=== PATIENT | male | born 1945 | race Caucasian/White ===

== ENCOUNTER 2017-01-18 05:52 | Inpatient (IN) ==
[2017-01-15 10:52] LABS: Basophils % 0.4 % (0.0-0.8); Eosinophils % 0.4 % (0.00-10.9); Hematocrit 42.4 VOL% (42.0-52.0); Hemoglobin 14.7 GM/DL (14.0-18.0); Immature Granulocytes % 0.3 %; Immature Granulocytes Absolute 0.02 #; Lymphocytes # 2.2 10*3/uL (1.4-4.0); Mean Corpuscular HGB Conc 34.7 GM/DL (32-36); Mean Corpuscular Hemoglobin 34 PG (27-34); Mean Corpuscular Volume 96.8 FL (87-102); Mean Platelet Volume 10.4 FL (9.6-12.0); Monocytes # 0.8 10*3/uL (0.11-0.8); Monocytes % 11.1 % (1.7-12.7); Neutrophils # 4.4 10*3/uL (1.4-7.4); Neutrophils % 58.8 % (38.7-73.9); Platelet Count 181 T/CUMM (130-400); Red Blood Count 4.38 MC/CUMM (3.8-5.5); Red Cell Distribution Width 12.8 % (9.3-17.3); White Blood Count 7.4 T/CUMM (4-12)
[2017-01-15 11:29] LABS: Albumin 3.7 G/DL (3.4-5.0); Bilirubin,Total 0.4 MG/DL (0.2-1.0); Calcium 9.3 MG/DL (8.5-10.1); Osmolality,Calculated 277.3 MOS/KG (273-304); Potassium 4.7 MMOL/L (3.5-5.1); Total Protein 7.3 G/DL (6.4-8.3)
--- NOTE | 2017-01-15 12:12 | XRay Report ---
XR chest 2V Indication: Preop evaluation Comparison: None Technique: Frontal and lateral views of the chest. Findings: Heart size appears within normal limits. Chronic change of the lungs without focal consolidation, pleural effusion, or pneumothorax. Visualized osseous and surrounding soft tissue structures demonstrate no acute abnormality. Electronic device noted projecting over the right upper lung with electrodes extending into the right neck base and superior to image. Electronic device projecting over the left upper lung with electrodes extending of the left neck base and superior to image. Right humeral anchor noted. IMPRESSION: No acute cardiopulmonary process demonstrated. PROCEDURE INTERPRETED AT [facility] DEPARTMENT OF RADIOLOGY Final Report Signed by: Dr Erick Hinton
[2017-01-18] MEDS ORDERED: METOCLOPRAMIDE 10 MG TABLET PO SCH (06:00)
[2017-01-18] MEDS ORDERED: FAMOTIDINE 20 MG TABLET PO ONE (06:00)
[2017-01-18] MEDS ORDERED: LORazepam 1 MG TABLET PO ONE (06:00)
[2017-01-18] MEDS ORDERED: ALVIMOPAN 12 MG CAPSULE PO ONE (06:00)
[2017-01-18] MEDS ORDERED: cefOXitin 1,000 MG in SODIUM CHLORIDE 0.9% 100 ML IV ONE (06:00)
[2017-01-18] MEDS ORDERED: SODIUM CHLORIDE 0.9% 100 ML IV ONE (06:06)
[2017-01-18] MEDS ORDERED: FAMOTIDINE 20 MG TABLET ONE (06:06)
[2017-01-18] MEDS ORDERED: ALVIMOPAN 12 MG CAPSULE ONE (06:07)
[2017-01-18] MEDS ORDERED: LORazepam 1 MG TABLET ONE (06:07)
[2017-01-18] MEDS ORDERED: METOCLOPRAMIDE 10 MG TABLET ONE (06:19)
[2017-01-18] MEDS ORDERED: METOCLOPRAMIDE 10 MG/2 ML VIAL IV STA (06:38)
--- NOTE | 2017-01-18 06:50 | EKG Report ---
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
--- NOTE | 2017-01-18 06:55 | History and Physical Update ---
History and Physical Update - History and Physical H&P was reviewed, the patient examined and there: are no changes in the patients condition since last H&P was completed. (discussed with cardiology. EF 50% and neg stress test. Should be OK for surgery. Discussed with Dr Mcleod)
[2017-01-18] MEDS: LACTATED RINGERS 1,000 ML IV SCH (06:57)
[2017-01-18] MEDS ORDERED: GLYCOPYRROLATE 0.4 MG/2 ML VIAL ONE (07:05)
[2017-01-18] MEDS ORDERED: ROCURONIUM 100 MG/10 ML VIAL IV ONE (07:05)
[2017-01-18] MEDS ORDERED: PHENYLEPHRINE 1 MG/10 ML SYRINGE IV ONE (07:05)
[2017-01-18] MEDS ORDERED: HYDROCORTISONE 100 MG VIAL ONE (07:05)
[2017-01-18] MEDS ORDERED: PROPOFOL 200 MG/20 ML VIAL IV ONE (07:05)
[2017-01-18] MEDS ORDERED: ONDANSETRON 4 MG/2 ML VIAL ONE ×2 (07:05→10:53)
[2017-01-18] MEDS ORDERED: LIDOCAINE 1% 5 ML VIAL ONE (07:05)
[2017-01-18] MEDS ORDERED: BUPIVACAINE MPF 0.25% /EPI 30 ML VIAL ONE (07:15)
[2017-01-18 10:31] LABS: Apearance,Urine CLOUDY (Clear); Bacteria,Urine Occasional /HPF (Few); Bilirubin,Urine Negative (Negative); Blood, Urine Negative (Negative); Glucose,Urine (UA) Negative (Negative); Ketones,Urine Negative (Negative); Mucus,Urine Many /LPF (Occasional); Nitrite,Urine Negative (Negative); Protein,Urine 100 MG/DL; RBC,Urine 2 /HPF (0-4); Urine Color Amber (Yellow); Urine Specific Gravity 1.025 (1.001-1.035); Urine Urobilinogen < 2.0 EU/DL (0.2-1.0); WBC,Urine 4 /HPF (0-6)
--- NOTE | 2017-01-18 10:33 | Operative Note ---
Date of procedure: 01/18/17 Pre-op diagnosis: Chronic recurrent sigmoid diverticulitis Post-op diagnosis: same Procedure: Robotic sigmoid colectomy with stapled EEA anastomosis 2. Complete mobilization of splenic flexure Findings and technique: After informed consent was obtained patient was brought the operating room placed in supine position. After successful induction of general anesthesia the patient's abdomen and perineum were prepped and draped in usual sterile fashion with the patient in a modified lithotomy position. The patient was placed in Trendelenburg position and the abdomen accessed through a right paramedian port site with a 8 mm incision and an open technique used to enter the peritoneal cavity under direct vision. Camera was inserted with a pneumoperitoneum established. Additional ports were placed in the right lower quadrant and right upper quadrant and the robot then docked. Dissection was carried first laterally after I inspected the abdomen and no other pathology was noted. There was scarring between the left pelvic and left lateral sidewall between chronically diseased colon and the peritoneum. This was all dissected free with a robot in the left ureter and gonadal vessels were identified along with the left iliac artery. dissection was carried down into the pelvis and down to the peritoneal reflection which was incised mobilizing the distal rectosigmoid and dissection then carried along the left gutter at the peritoneal reflection up to the splenic flexure. The splenic flexure was completely mobilized. Following this dissection was done medially and the mesenteric vessels are elevated up and a window created behind the colonic mesentery and the right and left ureter once again identified prior to dividing the colon distally at the rectosigmoid with a stapling device robotically. Once the colon was mobilized the right lower quadrant incision was enlarged a bit in the colon brought out through this and some of the mesentery roshan between clamps and ties in about 30 cm of sigmoid colon resected to normal- appearing descending colon. The pinpoint camera was then used with ICG injected and this showed the point of demarcation of the vascular supply to the colon and this was use as a point of transection with a pursestring device. The EEA anvil was inserted at this point and the bowel returned back into the abdominal cavity. Frozen section on the resected sigmoid colon returned benign. Following this a transanal anastomosis was performed with an EEA stapling device with the anvil passed through the staple line of the transected rectal stump and this was done under absolutely no tension.: An EEA anvil laid down into the pelvis with no tension and the anastomosis performed with no tension. This was then leak tested under water and no bubbling was noted from the staple line with air insufflated transanally. This was then coated with Tisseel and no bleeding noted in the colon laid in good position and all of the operative field was completely hemostatic. The gas was evacuated from the abdomen after a 10 mm JEANETTE drain was placed in the pelvis and brought out through 1 of the right-sided port sites. The fascial defect had been closed at the time that we put the colon and EEA anvil back in the abdomen this fascial defect was actually through his old paramedian scar and the fascia was closed along with the muscle with running 0 PDS suture. The skin incisions were closed with skin clips. He appeared to tolerate the procedure well and he did receive perioperative IV antibiotics. Anesthesia: GETA, local Surgeon / Physician: Renaldo Rahman III. Product Safety Coordinator: Marlon Dawkins Estimated blood loss: other (75 mL) Specimens: other (Sigmoid colon) Condition: stable Disposition: PACU Results - Labs CBC & BMP: 01/15/17 10:46 01/15/17 10:46 Discharge Plan - Discharge Medications No Action Fenofibrate [Tricor] 145 mg PO DAILY Atorvastatin [Lipitor] 80 mg PO DAILY Trazodone HCl 300 mg PO BEDTIME Donepezil [Aricept] 10 mg PO DAILY Multivitamin [One Daily Multivitamin] 1 tablet PO DAILY Tizanidine HCl 4 mg PO QID Lisinopril 20 mg PO DAILY Omeprazole 20 mg PO DAILY Acetamin/Codeine 300-30 Tab [Tylenol/Codeine #3] 1 tablet PO QID Tamsulosin [Flomax] 0.4 mg PO DAILY Vortioxetine Hydrobromide [Brintellix] 1 tablet PO DAILY Carvedilol 6.25 mg PO BID - Follow Up or Referral - Forms/Instructions
[2017-01-18] MEDS ORDERED: hydrALAZINE 20 MG/1 ML VIAL ONE (10:42)
[2017-01-18] MEDS ORDERED: hydrALAZINE 20 MG/1 ML VIAL IV ONE (10:46)
[2017-01-18] MEDS ORDERED: ALBUMIN 5% 12.5 GM/250 ML VIAL IV ONE (10:48)
[2017-01-18] MEDS ORDERED: DESFLURANE 1 UNIT/15 MINUTE INH ONE (10:48)
[2017-01-18] MEDS ORDERED: ePHEDrine 50 MG/ML AMP ONE (10:49)
[2017-01-18] MEDS ORDERED: LACTATED RINGERS 1,000 ML IV ONE (10:49)
[2017-01-18] MEDS ORDERED: ACETAMINOPHEN 1,000 MG/100 ML VIAL IV ONE (10:49)
[2017-01-18] MEDS ORDERED: SUFentanil 50 MCG/ML AMP ONE (10:49)
[2017-01-18] MEDS ORDERED: HYDROmorphone 2 MG/1 ML VIAL ONE (10:53)
[2017-01-18] MEDS: HYDROmorphone 2 MG/1 ML VIAL IV PRN ×6 (10:55→20:31)
[2017-01-18] MEDS ORDERED: ONDANSETRON 4 MG/2 ML VIAL IV PRN (10:57)
[2017-01-18 12:47] LABS: Hematocrit 42.8 VOL% (42.0-52.0); Hemoglobin 14.8 GM/DL (14.0-18.0)
--- NOTE | 2017-01-18 12:59 | Operative Note ---
Date of procedure: 01/18/17 Pre-op diagnosis: sigmoid diverticulitis Post-op diagnosis: same Procedure: This is a animal care assistant note for the robotic assisted laparoscopic splenic flexure mobilization and sigmoid colectomy performed by Dr. Rahman. I was the bedside hospital nursing assistant for the robotic portion of the procedure and also assisted with the anal portion of the EEA stapled anastomosis. There was sigmoid diverticular disease present in a resection was performed back to healthy bowel both proximally and distally was free of diverticulum. A splenic flexure mobilization was performed robotically. The left ureter and right ureter were both seen and preserved. There was no tension on the anastomosis which was performed with an EEA 28 mm stapler. The air leak test was negative. The pinpoint perfusion device was used to visualize good perfusion at the proximal resection site of the colon. For full details of the procedure please see Dr. Rahman note. Surgeon / Physician: Renaldo Rahman III. Dry Chain Operator: Marlon Dawkins Estimated blood loss: minimal Results - Labs CBC & BMP: 01/18/17 12:39 01/15/17 10:46 Discharge Plan - Discharge Medications No Action Fenofibrate [Tricor] 145 mg PO DAILY Atorvastatin [Lipitor] 80 mg PO DAILY Trazodone HCl 300 mg PO BEDTIME Donepezil [Aricept] 10 mg PO DAILY Multivitamin [One Daily Multivitamin] 1 tablet PO DAILY Tizanidine HCl 4 mg PO QID Lisinopril 20 mg PO DAILY Omeprazole 20 mg PO DAILY Acetamin/Codeine 300-30 Tab [Tylenol/Codeine #3] 1 tablet PO QID Tamsulosin [Flomax] 0.4 mg PO DAILY Vortioxetine Hydrobromide [Brintellix] 1 tablet PO DAILY Carvedilol 6.25 mg PO BID - Follow Up or Referral - Forms/Instructions
[2017-01-18] MEDS: DEXTROSE 5% LACTATED RINGERS 1,000 ML IV SCH ×2 (13:37→20:35)
[2017-01-18] MEDS: tiZANidine 4 MG TABLET PO SCH ×3 (14:05→20:31)
--- NOTE | 2017-01-18 15:49 | Cardiology Consult Note ---
Tanner Priest Vanessa, RN, am scribing for, and in the presence of, Salomon Finley MD 15:49. Assessment and Plan - Time spent with patient Time spent with patient: Greater than 30 minutes (Due to assessment, planning, documentation, medication review) (1) Status post colectomy Status: Acute Assessment and plan: Status post uneventful sigmoid colectomy earlier this morning. He appears to be doing well at this time, and we will follow with you perioperatively and check twelve-lead EKG in the morning. Current Visit: Yes (2) Hypertension Status: Chronic Current Visit: Yes (3) Dyslipidemia Status: Chronic Assessment and plan: Statin has been continued postoperatively. Current Visit: Yes (4) History of coronary artery disease Status: Chronic Assessment and plan: Appears to be stable at this time. He has undergone cardiac catheterization in the remote past which was performed at [facility] by a Dr. Finley, and patient reported that he was told he had a blockage "way down at the end of the vessel as" but this does not require percutaneous coronary intervention or surgical intervention. Current Visit: Yes (5) GERD (gastroesophageal reflux disease) Status: Chronic Assessment and plan: Continue PPI. Current Visit: Yes (6) Diverticulitis Status: Chronic Assessment and plan: This has been an ongoing issue for several years now, and most recent has caused abdominal pain and weight loss. Current Visit: Yes History of Present Illness - Data of Consult Patient: known to practice within the last 3 years Consult date: 01/18/17 Requesting Physician: Renaldo Rahman III. 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 GARSIA PCP: DR. BAIN CARDIOLOGY CONSULT NOTE: PERIOPERATIVE MANAGEMENT, STATUS POST ELECTIVE COLECTOMY Mr. Russ is a 71 year old white male with risk factors significant for: Hypertension, dyslipidemia, known CAD, family history of CAD, and former smoker. 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 Ndiaye. He had previously been experiencing some nausea, vomiting, and diaphoresis. A 30 day event monitor revealed only normal sinus rhythm with PACs. It is also noted he has previous reported that he experiences dizziness of his blood pressure is "too high or too low". Average BP 160s/90s. He has not had any recent chest pain or shortness of breath. He was recently referred to Dr. Lacey JOSE per Dr. Ndiaye for surgical evaluation diverticulitis. He has had abdominal pain and weight loss moderate to severe. He was scheduled for elective colectomy, and underwent robotic sigmoid colectomy this morning per Dr. Dr. Lacey JOSE and Dr. Dawkins. Cardiology is asked to see for perioperative management. Most recent echocardiogram in August 2016 with normal LV size, borderline normal systolic function, ejection fraction 50%, grade 1 diastolic dysfunction, mild MR and TR with PA pressure 42 mmHg. Myocardial perfusion test August also showing small fixed perfusion abnormality of moderate size in the apical segment and inferior region with diaphragmatic attenuation suspected. Mr. Russ is sleeping quietly without distress noted this afternoon upon exam. His is present at bedside with him. Patient rouses easily, and he denies any current chest pain or shortness of breath. He is having no nausea or vomiting. He has not been orthopneic or had lower extremity edema. His only complaint is of some mild discomfort at this time at incisional sites right upper and lower quadrant of abdomen. Blood pressure during exam 145/65. Pulse is 80s and regular. Supplemental O2 via NC at 2L with saturations upper 90s. Labs reviewed. H&H stable 14.8/40 2. Electrolytes and renal function are normal. Urinalysis revealed occasional bacteria. CC: Renaldo Rahman III., - Home Medications and Allergies Home Medications: Home Medications Medication Instructions Recorded Confirmed Type Acetamin/Codeine 300-30 Tab 1 tablet PO QID 01/17/17 01/18/17 History [Tylenol/Codeine #3] Atorvastatin [Lipitor] 80 mg PO DAILY 01/17/17 01/18/17 History Donepezil [Aricept] 10 mg PO DAILY 01/17/17 01/18/17 History Fenofibrate [Tricor] 145 mg PO DAILY 01/17/17 01/18/17 History Lisinopril 20 mg PO DAILY 01/17/17 01/18/17 History Multivitamin [One Daily 1 tablet PO DAILY 01/17/17 01/18/17 History Multivitamin] Omeprazole 20 mg PO DAILY 01/17/17 01/18/17 History Tamsulosin [Flomax] 0.4 mg PO DAILY 01/17/17 01/18/17 History Tizanidine HCl 4 mg PO QID 01/17/17 01/18/17 History Trazodone HCl 300 mg PO BEDTIME 01/17/17 01/18/17 History Vortioxetine Hydrobromide 1 tablet PO DAILY 01/17/17 01/18/17 History [Brintellix] Carvedilol 6.25 mg PO BID 01/18/17 01/18/17 History Allergies/Adverse Reactions: Allergies Allergy/AdvReac Type Severity Reaction Status Date / Time morphine Allergy Severe Vomiting Verified 01/17/17 08:51 - Constitutional Constitutional: Present: as per HPI - EENT Eyes: Present: as per HPI Ears: Present: as per HPI Nose, mouth and throat: Present: as per HPI - Cardiovascular Cardiovascular: Present: as per HPI - Respiratory Respiratory: Present: as per HPI - Gastrointestinal Gastrointestinal: Present: as per HPI - Genitourinary Genitourinary: Present: as per HPI - Musculoskeletal Musculoskeletal: Present: as per HPI - Neurological Neurological: Present: as per HPI - Psychiatric Psychiatric: Present: as per HPI - Endocrine Endocrine: Present: as per HPI - Hematologic/Lymphatic Hematologic/Lymphatic: Present: as per HPI Medical,Surgical,& Family Hx - Medical History Cardio: History of: CAD, Hypertension, Cardiovascular Problems No history of: Cardiac Dysrhythmia, Cerebrovascular Disease, DC, Pacemaker, PVD, Valvular Heart Disease Neurology: Comment Only: Seizures (TRMORS) HEENT: History of: Eye Problem (GLASSES), Dental Problems (DENTAL) Endocrine: History of: Dyslipidemia No history of: Diabetes Mellitus (IDDM), Diabetes Mellitus (NIDDM), Thyroid Disorder Respiratory: No history of: Bronchitis, Obstructive Sleep Apnea Renal: No history of: Renal Problems Gastrointestinal: History of: Diverticulitis/ Diverticulosis, GERD No history of: Gastrointestinal Bleed, Ulcerative Colitis Musculoskeletal: History of: Musculoskeletal Problems (OA) - Surgical History Cardiac Surgeries: Sugical HX of: Cardiac Catheterization Patient Denies: Carotid Endarterectomy, Internal Defibrillator Abdominal Surgeries: Surgical HX of: Abdominal Surgery (right sigmoid colectomy) , Colonoscopy, EGD Orthopedic Surgeries: Surgical HX of;: Implanted Devices (brain stimulator), Total Hip Replacement (RIGHT) - Family History Family History: Reports;: Family Cancer (sister), Family Diabetes (mother), Family Heart Disease (MOM), Family Hypertension (mother), Additional Family History (DAD-RUPTURE COLON) - Social History Smoking Status: Never smoker Frequency of Alcohol Use: None Type of Drug Use: None Marital Status: Lives With:: Spouse Functional capacity: independent ambulation Physical Examination Vital Signs Temp Pulse Resp BP Pulse Ox 97.8 F 53 L 20 169/94 97 01/18/17 06:26 01/18/17 06:26 01/18/17 06:26 01/18/17 06:26 01/18/17 06:26 General: Present: No Apparent Distress HEENT: Present: PERRL, Normocephaly, Mucus Membranes Moist Neck: Present: Supple Neck, Midline Trachea, No JVD/HJR, No Masses, No Bruit Cardiac: Present: Reg Rate and Rhythm, No Murmur. Absent: Tachycardia, Bradycardia Lungs: Present: Clear Ascult./Percussion, Oxygen, No Wheeze, Rales, Rhonchi Neuro: Present: Grossly Intact. Absent: Numbness, Resting Tremor, Essential Tremor Abdomen: Present: Soft, Tender (Right upper and lower quadrant and surgical site ), Other (Decreased). Absent: Firm, Distended Skin: Present: Clear, Other (Right upper quadrant and right lower quadrant of ABD with dry and intact dressing to incision 3. JEANETTE drain intact.). Absent: Rash, Suspicious Lesions Musculoskeletal: Present: No Fluid Collection, Normal Range of Motion Extremities: Present: No Clubbing, No Cyanosis, No Edema, Normal Upper Extr. Pulses (2+ bilaterally), Normal Lower Extr. Pulses (2+ bilateral), Capillary Refill (Normal) Result/EKG - Labs CBC & BMP: 01/18/17 12:39 01/15/17 10:46 Lab Results: I have reviewed the past 24 hour labs Labs: Laboratory Results - last 24 hr 01/18/17 01/18/17 10:24 12:39 Hgb 14.8 Hct 42.8 Urine Color Fal[place]i Urine Appearance Cloudy Urine pH 5.0 Ur Specific Wana 1.025 Urine Protein 100 Urine Glucose (UA) Negative Urine Ketones Negative Urine Blood Negative Urine Nitrate Negative Urine Bilirubin Negative Urine Urobilinogen < 2.0 H Urine Leukocytes Trace Urine RBC 2 Urine WBC 4 Urine Bacteria Occasional Urine Mucus Many Ur Culture Indicated? Not indicated - Diagnostic Findings Procedure: Chest x-ray: image reviewed by me, report reviewed by me (01/17/17: Cardiomegaly, stable. No ousmane pulmonary edema.) - EKG EKG results: interpreted by me, no acute changes EKG shows: sinus rhythm Quality Measures - VTE Contraindication to Pharmacological VTE Prophylaxis: High Risk of Bleeding Tushar Priest Wesley, MD, personally performed the services described in this documentation, ascribed by Adri Hart RN in my presence, and it is both accurate and complete .
[2017-01-18 19:23] LABS: Hematocrit 36.7 VOL% (42.0-52.0)
[2017-01-18] MEDS: CARVEDILOL 6.25 MG TABLET PO SCH (20:31)
[2017-01-19] MEDS: HYDROmorphone 2 MG/1 ML VIAL IV PRN ×5 (02:21→20:40)
[2017-01-19 03:24] LABS: Hematocrit 34.8 VOL% (42.0-52.0); Hemoglobin 12.2 GM/DL (14.0-18.0)
[2017-01-19 03:25] LABS: Basophils % 0.1 % (0.0-0.8); Hematocrit 35.4 VOL% (42.0-52.0); Hemoglobin 12.3 GM/DL (14.0-18.0); Immature Granulocytes % 0.3 %; Immature Granulocytes Absolute 0.02 #; Lymphocytes # 1.8 10*3/uL (1.4-4.0); Lymphocytes % 24.3 % (21.2-54.2); Mean Corpuscular HGB Conc 34.7 GM/DL (32-36); Mean Corpuscular Hemoglobin 33 PG (27-34); Mean Corpuscular Volume 95.7 FL (87-102); Monocytes # 1.1 10*3/uL (0.11-0.8); Monocytes % 15.4 % (1.7-12.7); Neutrophils # 4.5 10*3/uL (1.4-7.4); Neutrophils % 59.9 % (38.7-73.9); Platelet Count 156 T/CUMM (130-400); White Blood Count 7.4 T/CUMM (4-12)
[2017-01-19 03:52] LABS: Calcium 8.2 MG/DL (8.5-10.1); Osmolality,Calculated 277.4 MOS/KG (273-304); Potassium 3.3 MMOL/L (3.5-5.1)
[2017-01-19] MEDS: DEXTROSE 5% LACTATED RINGERS 1,000 ML IV SCH ×4 (04:14→13:11)
--- NOTE | 2017-01-19 07:21 | EKG Report ---
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
[2017-01-19] MEDS: LACTATED RINGERS 1,000 ML IV SCH (08:04)
[2017-01-19] MEDS: DONEPEZIL 10 MG TABLET PO SCH (08:33)
[2017-01-19] MEDS: ATORVASTATIN 80 MG TABLET PO SCH (08:33)
[2017-01-19] MEDS: CARVEDILOL 6.25 MG TABLET PO SCH ×2 (08:33→20:40)
[2017-01-19] MEDS: LISINOPRIL 20 MG TABLET PO SCH (08:33)
[2017-01-19] MEDS: TAMSULOSIN 0.4 MG CAPSULE PO SCH (08:33)
--- NOTE | 2017-01-19 08:33 | Event Note ---
He feels well and has expected abdominal soreness. This is controlled with pain medication. He has stable vital signs and good urine output. He has a moderate amount of JEANETTE drainage which is not unexpected because of intra- abdominal irrigation. This is decreasing. His hematocrit has drifted downward and this is probably related both to some surgical blood loss and hemodilution. We will continue to watch this. I do not see a need for transfusion. We will get him up out of bed and get his Nino catheter out today.
[2017-01-19] MEDS: PANTOPRAZOLE 40 MG TABLET PO SCH (08:34)
[2017-01-19] MEDS: FENOFIBRATE 145 MG TABLET PO SCH (08:34)
[2017-01-19] MEDS: tiZANidine 4 MG TABLET PO SCH ×4 (08:34→20:40)
[2017-01-19] MEDS ORDERED: BRINTELLIX PO SCH (09:00)
[2017-01-19] MEDS: POTASSIUM CHLORIDE 20 MEQ TABLET PO PRN ×2 (09:20→13:20)
--- NOTE | 2017-01-19 11:18 | Pathology Report from [facility] ---
[facility] ACCESSION # : [id number] PATIENT NAME : Rohit Russ ORDERING DR : CASSIE GUILLORY III, MD CLINICAL HX: Diverticulitis POST-OP DX: Same SPECIMEN INFO: #1 Sigmoid colon #2 Nodule on sigmoid colon #3 Donuts GROSS DESCRIPTION: #1 Received fresh labeled ROHIT RUSS consists of a segment of colon measuring 22.0 x 2.5 cm. Opening the specimen reveals a thickened bowel wall with an area of constriction noted centrally. Scattered non-bleeding diverticula are present with no mucosal lesions or perforations seen. Sections submitted 1A&1B-Surgical margins, 1C-Diverticula.#2 Received in formalin labeled ROHIT RUSS & #2 is a 1.5 x 1.2 cm thompson nodule filled with soft yellow brown material, sectioned and submitted in cassette #2.#3 Received in formalin labeled ROHIT RUSS & #3 are two ring shaped fragments of thompson mucosal tissue 3.8 x 1.5 cm collectively. Field Sales Consultant sections are submitted in cassette #3. DIAGNOSIS FOR ROHIT RUSS: #1 SIGMOID COLECTOMY: Diverticulosis/ diverticulitis, serosal fibrous adhesions and acute hemorrhage. Viable tissue is proximal and distal specimen margins.#2 NODULE ON SIGMOID COLON: Infarcted fatty tissue with dystrophic calcification.#3 DONUTS: Unremarkable colonic tissue. COLLECTED DATE: 01/18/2017 [facility] REPORT DATE: 01/19/2017 ELECTRONICALLY SIGNED BY: Pepito Ortiz M.D. 01/19/2017 - 10:39:31 [facility]
[2017-01-19] MEDS ORDERED: MAGNESIUM SULF RIDER 4 GM in PREMIX 1 EACH IV PRN (11:29)
[2017-01-19] MEDS ORDERED: MAGNESIUM SULF RIDER 2 GM in PREMIX 1 EACH IV PRN (11:29)
--- NOTE | 2017-01-19 11:32 | Cardiology Progress Note ---
Tanner Priest Vanessa, RN, am scribing for, and in the presence of, Salomon Finley MD 11:32. Assessment and Plan - Time spent with patient Time spent with patient: Greater than 30 minutes (1) Status post colectomy Status: Acute Assessment and plan: POD #1 status post uneventful sigmoid colectomy. From a cardiac standpoint, he appears to be doing well. Current Visit: Yes (2) Hypertension Status: Chronic Assessment and plan: Blood pressure overall well controlled. Antihypertensives have been resumed postoperatively. Current Visit: Yes (3) Dyslipidemia Status: Chronic Assessment and plan: Statin has been continued postoperatively. Current Visit: Yes (4) History of coronary artery disease Status: Chronic Assessment and plan: Appears to be stable at this time. He has undergone cardiac catheterization in the remote past which was performed at [facility] by a Dr. Finley, and patient reported that he was told he had a blockage "way down at the end of the vessel as" but this does not require percutaneous coronary intervention or surgical intervention. Current Visit: Yes (5) GERD (gastroesophageal reflux disease) Status: Chronic Assessment and plan: Continue PPI. Current Visit: Yes (6) Diverticulitis Status: Chronic Assessment and plan: This has been an ongoing issue for several years now, and most recently has caused abdominal pain and weight loss. Current Visit: Yes Cardiology - PN: Subj Interval history: PRIMARY DIRECTOR OF PSYCHIATRY: DR. GARSIA PCP: DR. DIANE SUMMARY: Mr. Russ is a 71 year old white male with risk factors significant for: Hypertension, dyslipidemia, known CAD, family history of CAD, and former smoker. 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 Ndiaye. He had previously been experiencing some nausea, vomiting, and diaphoresis. A 30 day event monitor revealed only normal sinus rhythm with PACs. It is also noted he has previous reported that he experiences dizziness of his blood pressure is "too high or too low". Average BP 160s/90s. He has not had any recent chest pain or shortness of breath. He was recently referred to Dr. Rahman III per Dr. Ndiaye for surgical evaluation diverticulitis. He has had abdominal pain and weight loss moderate to severe. He was scheduled for elective colectomy, and underwent robotic sigmoid colectomy this morning per Dr. Dr. Lacey JOSE and Dr. Dawkins. Cardiology is asked to see for perioperative management. Most recent echocardiogram in August 2016 with normal LV size, borderline normal systolic function, ejection fraction 50%, grade 1 diastolic dysfunction, mild MR and TR with PA pressure 42 mmHg. Myocardial perfusion test August also showing small fixed perfusion abnormality of moderate size in the apical segment and inferior region with diaphragmatic attenuation suspected. January: Patient is now POD #1 status post colectomy. He is awake and alert this morning. Spouse present at bedside. Denies chest pain, shortness of breath, or other overt cardiac complaint. He is currently experiencing some abdominal soreness at surgical site areas. Reports pain has been fairly well controlled with pain medication. H&H is stable but is decreased from 14.8/42.8 to 12.3/ 35.4. He is not requiring transfusion. Hypokalemia with K+ 3.3 (previous K+ 4.7 on January 15) and creatinine is increased to 1.5 with GFR 51 (previously 0.8 and 100 respectively on January 15). Systolic BP ranging 110-125 mmHg. Pulse is 70s, regular. Abdominal incision dressings are dry/intact. JEANETTE drain with fair amount serous output. 12 lead EKG this morning displays sinus rhythm, right bundle branch block, pulse rate 70s, and there is no acute change or finding. EKG is stable. Potassium today is 3.3 and we will add potassium replacement protocol. Otherwise he stable and doing well. Exam (Progress Note) - Constitutional Vitals: Period Temp Pulse Resp BP Sys/Squires Pulse Ox Last 24 Hr 97.2 F-99.3 F 77-96 16-20 107-170/64-94 92-100 Exam: General: Present: No Apparent Distress HEENT: Present: PERRL, Normocephaly, Mucus Membranes Moist Neck: Present: Supple Neck, Midline Trachea, No JVD/HJR, No Masses, No Bruit Cardiac: Present: Reg Rate and Rhythm, No Murmur. Absent: Tachycardia, Bradycardia Lungs: Present: Clear Ascult./Percussion, Oxygen, No Wheeze, Rales, Rhonchi Neuro: Present: Grossly Intact. Absent: Numbness, Resting Tremor, Essential Tremor Abdomen: Present: Soft, Tender (Right upper and lower quadrant and surgical site ), Other (Decreased). Absent: Firm, Distended Skin: Present: Clear, Other (Right upper quadrant and right lower quadrant of ABD with dry and intact dressing to incision 3. JEANETTE drain intact.). Absent: Rash, Suspicious Lesions Musculoskeletal: Present: No Fluid Collection, Normal Range of Motion Extremities: Present: No Clubbing, No Cyanosis, No Edema, Normal Upper Extr. Pulses (2+ bilaterally), Normal Lower Extr. Pulses (2+ bilateral), Capillary Refill (Normal) Result/EKG - Labs CBC & BMP: 01/19/17 02:51 01/19/17 02:51 Lab Results: I have reviewed the past 24 hour labs Labs: Laboratory Results - last 24 hr 01/18/17 01/18/17 01/19/17 12:39 19:06 02:51 WBC RBC Hgb 14.8 13.0 L 12.2 L Hct 42.8 36.7 L 34.8 L MCV MCH MCHC RDW Plt Count MPV Neut % (Auto) Lymph % (Auto) [place] % (Auto) Eos % (Auto) Baso % (Auto) Neut # (Auto) Lymph # (Auto) [place] # (Auto) Eos # (Auto) Baso # (Auto) Immature Gran % Nucleated RBC % Immature Gran # Nucleated RBCs # Sodium Potassium Chloride Carbon Dioxide Anion Gap BUN Creatinine GFR Calculation BUN/Creatinine Ratio Glucose Calculated Osmolality Calcium 01/19/17 01/19/17 02:51 02:51 WBC 7.4 RBC 3.70 L Hgb 12.3 L Hct 35.4 L MCV 95.7 MCH 33 MCHC 34.7 RDW 13.0 Plt Count 156 MPV 11.0 Neut % (Auto) 59.9 Lymph % (Auto) 24.3 [place] % (Auto) 15.4 H Eos % (Auto) 0.0 Baso % (Auto) 0.1 Neut # (Auto) 4.5 Lymph # (Auto) 1.8 [place] # (Auto) 1.1 H Eos # (Auto) 0.0 Baso # (Auto) 0.0 Immature Gran % 0.3 Nucleated RBC % 0.0 Immature Gran # 0.02 Nucleated RBCs # 0.00 Sodium 140 Potassium 3.3 L Chloride 103 Carbon Dioxide 28 Anion Gap 12.3 BUN 8 Creatinine 1.50 H GFR Calculation 51 BUN/Creatinine Ratio 5.00 L Glucose 114 H Calculated Osmolality 277.4 Calcium 8.2 L - EKG EKG results: interpreted by me, no acute changes EKG shows: sinus rhythm Quality Measures - VTE Contraindication to Pharmacological VTE Prophylaxis: High Risk of Bleeding Tushar Priest Wesley, MD, personally performed the services described in this documentation, ascribed by Adri Hart RN in my presence, and it is both accurate and complete .
[2017-01-19 14:50] LABS: Hematocrit 33.3 VOL% (42.0-52.0); Hemoglobin 11.6 GM/DL (14.0-18.0)
[2017-01-19] MEDS: ONDANSETRON 4 MG/2 ML VIAL IV PRN (21:04)
[2017-01-20 05:13] LABS: Basophils % 0.3 % (0.0-0.8); Eosinophils % 0.1 % (0.00-10.9); Hematocrit 34.1 VOL% (42.0-52.0); Hemoglobin 11.6 GM/DL (14.0-18.0); Immature Granulocytes % 0.3 %; Immature Granulocytes Absolute 0.02 #; Lymphocytes # 2.3 10*3/uL (1.4-4.0); Lymphocytes % 30.3 % (21.2-54.2); Mean Corpuscular Hemoglobin 33 PG (27-34); Mean Corpuscular Volume 96.1 FL (87-102); Mean Platelet Volume 11.1 FL (9.6-12.0); Monocytes # 1.3 10*3/uL (0.11-0.8); Monocytes % 17.1 % (1.7-12.7); Neutrophils # 3.9 10*3/uL (1.4-7.4); Neutrophils % 51.9 % (38.7-73.9); Platelet Count 146 T/CUMM (130-400); Red Blood Count 3.55 MC/CUMM (3.8-5.5); Red Cell Distribution Width 13.1 % (9.3-17.3); White Blood Count 7.5 T/CUMM (4-12)
[2017-01-20 07:40] LABS: Band Neutrophils 2 % (0-10); Hypochromasia Slight; Lymphocytes 20 % (20-55); Platelet Estimate Adequate; Segmented Neutrophils 57 % (50-85); Total Cells Counted 100
[2017-01-20 08:21] LABS: Calcium 8.6 MG/DL (8.5-10.1); Magnesium 1.8 MG/DL (1.8-2.4); Osmolality,Calculated 273.5 MOS/KG (273-304); Potassium 3.7 MMOL/L (3.5-5.1)
[2017-01-20] MEDS: HYDROmorphone 2 MG/1 ML VIAL IV PRN ×4 (08:46→22:13)
[2017-01-20] MEDS: ONDANSETRON 4 MG/2 ML VIAL IV PRN (08:46)
--- NOTE | 2017-01-20 08:53 | Cardiology Progress Note ---
Assessment and Plan (1) Status post colectomy Status: Acute Assessment and plan: POD #1 status post uneventful sigmoid colectomy. From a cardiac standpoint, he appears to be doing well. Current Visit: Yes (2) Hypertension Status: Chronic Assessment and plan: Blood pressure overall well controlled. Antihypertensives have been resumed postoperatively. 01/20: Patient's blood pressures are good. He has got good pain control and he is recovering uneventfully. Current Visit: Yes (3) Dyslipidemia Status: Chronic Assessment and plan: Statin has been continued postoperatively. Current Visit: Yes (4) History of coronary artery disease Status: Chronic Assessment and plan: Appears to be stable at this time. He has undergone cardiac catheterization in the remote past which was performed at [facility] by a Dr. Finley, and patient reported that he was told he had a blockage "way down at the end of the vessel as" but this does not require percutaneous coronary intervention or surgical intervention. Current Visit: Yes (5) GERD (gastroesophageal reflux disease) Status: Chronic Assessment and plan: Continue PPI. Current Visit: Yes (6) Diverticulitis Status: Chronic Assessment and plan: This has been an ongoing issue for several years now, and most recently has caused abdominal pain and weight loss. Current Visit: Yes Cardiology - PN: Subj Interval history: This patient is postop colon surgery and is doing well. He denies any history related to chest discomfort orthopnea or PND. He has had no palpitations or syncope he has had no other specific complaints. He is overall slowly recovering and is increasing his activities. Exam (Progress Note) - Constitutional Vitals: Period Temp Pulse Resp BP Sys/Squires Pulse Ox Last 24 Hr 97.9 F-99.6 F 56-87 18-20 92-160/54-87 93-95 Exam: General: Present: No Apparent Distress HEENT: Present: PERRL, Normocephaly, Mucus Membranes Moist Neck: Present: Supple Neck, Midline Trachea, No JVD/HJR, No Masses, No Bruit Cardiac: Present: Reg Rate and Rhythm, No Murmur. Absent: Tachycardia, Bradycardia Lungs: Present: Clear Ascult./Percussion, Oxygen, No Wheeze, Rales, Rhonchi Neuro: Present: Grossly Intact. Absent: Numbness, Resting Tremor, Essential Tremor Abdomen: Present: Soft, Tender (Right upper and lower quadrant and surgical site ), Other (Decreased). Absent: Firm, Distended Skin: Present: Clear, Other (Right upper quadrant and right lower quadrant of ABD with dry and intact dressing to incision 3. JEANETTE drain intact.). Absent: Rash, Suspicious Lesions Musculoskeletal: Present: No Fluid Collection, Normal Range of Motion Extremities: Present: No Clubbing, No Cyanosis, No Edema, Normal Upper Extr. Pulses (2+ bilaterally), Normal Lower Extr. Pulses (2+ bilateral), Capillary Refill (Normal) Result/EKG - Labs CBC & BMP: 01/20/17 04:25 01/20/17 04:25 Labs: Laboratory Results - last 24 hr 01/19/17 01/20/17 01/20/17 13:44 04:25 04:25 WBC 7.5 RBC 3.55 L Hgb 11.6 L 11.6 L Hct 33.3 L 34.1 L MCV 96.1 MCH 33 MCHC 34.0 RDW 13.1 Plt Count 146 MPV 11.1 Neut % (Auto) 51.9 Lymph % (Auto) 30.3 [place] % (Auto) 17.1 H Eos % (Auto) 0.1 Baso % (Auto) 0.3 Neut # (Auto) 3.9 Lymph # (Auto) 2.3 [place] # (Auto) 1.3 H Eos # (Auto) 0.0 Baso # (Auto) 0.0 Total Counted 100 Immature Gran % 0.3 Nucleated RBC % 0.0 Immature Gran # 0.02 Segmented Neutrophils 57 Band Neutrophils 2 Lymphocytes 20 Monocytes 21 H Nucleated RBCs # 0.00 Platelet Estimate Adequate Hypochromasia Slight Sodium 139 Potassium 3.7 Chloride 103 Carbon Dioxide 28 Anion Gap 11.7 BUN 6 L Creatinine 0.70 GFR Calculation 105 BUN/Creatinine Ratio 8.00 Glucose 86 Calculated Osmolality 273.5 Calcium 8.6 Magnesium 1.8 Quality Measures - VTE Contraindication to Pharmacological VTE Prophylaxis: High Risk of Bleeding
[2017-01-20] MEDS: LACTATED RINGERS 1,000 ML IV SCH (09:01)
[2017-01-20] MEDS: DONEPEZIL 10 MG TABLET PO SCH (09:43)
[2017-01-20] MEDS: CARVEDILOL 6.25 MG TABLET PO SCH ×2 (09:43→20:16)
[2017-01-20] MEDS: TAMSULOSIN 0.4 MG CAPSULE PO SCH (09:44)
[2017-01-20] MEDS: FENOFIBRATE 145 MG TABLET PO SCH (09:44)
[2017-01-20] MEDS: tiZANidine 4 MG TABLET PO SCH ×4 (09:44→20:16)
[2017-01-20] MEDS: ATORVASTATIN 80 MG TABLET PO SCH (09:44)
[2017-01-20] MEDS: LISINOPRIL 20 MG TABLET PO SCH (09:44)
[2017-01-20] MEDS: PANTOPRAZOLE 40 MG TABLET PO SCH (09:46)
--- NOTE | 2017-01-20 11:46 | EKG Report ---
Stationary ECG Study [facility] Test Date: 01/20/2017 11:46:55 AM Pat Name: ROHIT MARTINEZ Department: Room: 340 Gender: M Roll Operator: : 1945 Requested by: Salomon Finley Order Number: [id number] Reading MD: JOEL DESOUZA Intervals [place] Rate: 81 P: 999 NH: 0 QRS: 15 QRSD: 113 T: 83 QT: 402 QTc: 439 Interpretive Statements Normal sinus rhythm with APBs INCOMPLETE RIGHT BUNDLE BRANCH BLOCK VOLTAGE CRITERIA FOR LVH POSSIBLE LATERAL MYOCARDIAL INFARCTION, OF INDETERMINATE AGE Electronically Signed On 01-22-17 08:23:25 CDT by JOEL DESOUZA [email or web address]
--- NOTE | 2017-01-20 12:15 | Event Note ---
General Surgery Progress Note Chief complaint This patient is a 71-year-old man admitted following robotic assisted laparoscopic sigmoid colectomy for recurrent diverticulitis by Dr. Rahman on 01/18/2017 Interval history The patient is having some nausea but he is passing gas as well. He has not had a bowel movement yet. He is tolerating liquids without any significant change in his nausea and he is not having any vomiting. He feels like his nausea may be related to some sinus drainage. He is up walking around but has not gone for ambulations in the hallway yet. Physical exam The abdominal exam has expected postoperative tenderness. There is some blood staining on the dressings and we will change these today. There is no active bleeding. The JEANETTE drain is serosanguineous but low output Labs Hemoglobin is stable Imaging None Assessment and plan Advance to low residue diet Begin ambulating in hallway Continue SCDs and chemoprophylaxis Incentive spirometry Possible discharge home tomorrow
[2017-01-20] MEDS: ENOXAPARIN 40 MG/0.4 ML SYRINGE SUBCUT SCH (13:21)
[2017-01-20] MEDS: DEXTROSE 5% LACTATED RINGERS 1,000 ML IV SCH (22:29)
[2017-01-21] MEDS: HYDROmorphone 2 MG/1 ML VIAL IV PRN ×4 (00:16→18:01)
[2017-01-21] MEDS: DONEPEZIL 10 MG TABLET PO SCH (10:13)
[2017-01-21] MEDS: CARVEDILOL 6.25 MG TABLET PO SCH ×2 (10:13→20:41)
[2017-01-21] MEDS: DEXTROSE 5% LACTATED RINGERS 1,000 ML IV SCH ×3 (10:13→19:15)
[2017-01-21] MEDS: ATORVASTATIN 80 MG TABLET PO SCH (10:14)
[2017-01-21] MEDS: TAMSULOSIN 0.4 MG CAPSULE PO SCH (10:14)
[2017-01-21] MEDS: LISINOPRIL 20 MG TABLET PO SCH (10:14)
[2017-01-21] MEDS: PANTOPRAZOLE 40 MG TABLET PO SCH (10:14)
[2017-01-21] MEDS: FENOFIBRATE 145 MG TABLET PO SCH (10:15)
[2017-01-21] MEDS: tiZANidine 4 MG TABLET PO SCH ×4 (10:15→20:41)
--- NOTE | 2017-01-21 11:25 | Cardiology Progress Note ---
Assessment and Plan (1) Status post colectomy Status: Acute Assessment and plan: POD #1 status post uneventful sigmoid colectomy. From a cardiac standpoint, he appears to be doing well. Current Visit: Yes (2) Hypertension Status: Chronic Assessment and plan: Blood pressure overall well controlled. Antihypertensives have been resumed postoperatively. 01/20: Patient's blood pressures are good. He has got good pain control and he is recovering uneventfully. 01/21: Patient's blood pressures continue stable. Current Visit: Yes (3) Dyslipidemia Status: Chronic Assessment and plan: Statin has been continued postoperatively. Current Visit: Yes (4) History of coronary artery disease Status: Chronic Assessment and plan: Appears to be stable at this time. He has undergone cardiac catheterization in the remote past which was performed at [facility] by a Dr. Finley, and patient reported that he was told he had a blockage "way down at the end of the vessel as" but this does not require percutaneous coronary intervention or surgical intervention. Current Visit: Yes (5) GERD (gastroesophageal reflux disease) Status: Chronic Assessment and plan: Continue PPI. Current Visit: Yes (6) Diverticulitis Status: Chronic Assessment and plan: This has been an ongoing issue for several years now, and most recently has caused abdominal pain and weight loss. Current Visit: Yes Cardiology - PN: Subj Interval history: Patient continues cardiac stable. He is recovering nicely in increasing activity without limitation. Exam (Progress Note) - Constitutional Vitals: Period Temp Pulse Resp BP Sys/Squires Pulse Ox Last 24 Hr 97.0 F-98.7 F 62-81 14-20 125-158/57-86 93-95 Exam: General: Present: No Apparent Distress HEENT: Present: PERRL, Normocephaly, Mucus Membranes Moist Neck: Present: Supple Neck, Midline Trachea, No JVD/HJR, No Masses, No Bruit Cardiac: Present: Reg Rate and Rhythm, No Murmur. Absent: Tachycardia, Bradycardia Lungs: Present: Clear Ascult./Percussion, Oxygen, No Wheeze, Rales, Rhonchi Neuro: Present: Grossly Intact. Absent: Numbness, Resting Tremor, Essential Tremor Abdomen: Present: Soft, Tender (Right upper and lower quadrant and surgical site ), Other (Decreased). Absent: Firm, Distended Skin: Present: Clear, Other (Right upper quadrant and right lower quadrant of ABD with dry and intact dressing to incision 3. JEANETTE drain intact.). Absent: Rash, Suspicious Lesions Musculoskeletal: Present: No Fluid Collection, Normal Range of Motion Extremities: Present: No Clubbing, No Cyanosis, No Edema, Normal Upper Extr. Pulses (2+ bilaterally), Normal Lower Extr. Pulses (2+ bilateral), Capillary Refill (Normal) Result/EKG - Labs CBC & BMP: 01/20/17 04:25 01/20/17 04:25 Quality Measures - VTE Contraindication to Pharmacological VTE Prophylaxis: High Risk of Bleeding
--- NOTE | 2017-01-21 12:22 | Event Note ---
General Surgery Progress Note Chief complaint This patient is a 71-year-old man admitted following robotic assisted laparoscopic sigmoid colectomy for recurrent diverticulitis by Dr. Rahman on 01/18/2017 Interval history Patient is tolerating regular diet with no nausea or vomiting. Pain is well controlled. Physical exam The abdominal exam has expected postoperative tenderness. There is some blood staining on the dressings and we will change these today. There is no active bleeding. The JEANETTE drain is slightly sanguinous but low output Labs None new Imaging None Assessment and plan Continue low residue diet Likely discharge home tomorrow. I offered to send the patient home today but he said that his pain was not quite well controlled enough to go home.
[2017-01-21] MEDS: ENOXAPARIN 40 MG/0.4 ML SYRINGE SUBCUT SCH (13:18)
--- NOTE | 2017-01-22 07:32 | Event Note ---
General Surgery Progress Note Chief complaint This patient is a 71-year-old man admitted following robotic assisted laparoscopic sigmoid colectomy for recurrent diverticulitis by Dr. Rahman on 01/18/2017 Interval history The patient is tolerating a regular diet and the blood in his bowel movements is cleared up. He is passing gas. Pain is well controlled. JEANETTE drain has minimal output. Physical exam The abdominal exam has expected postoperative tenderness. The dressings are clean today there is no active bleeding. The JEANETTE drain is slightly sanguinous but low output Labs None new Imaging None Assessment and plan Discharge home today Discontinue JEANETTE drain prior to discharge Follow-up with Dr. Rahman next Sunday for clip removal.
[2017-01-22] MEDS: DONEPEZIL 10 MG TABLET PO SCH (08:35)
[2017-01-22] MEDS: TAMSULOSIN 0.4 MG CAPSULE PO SCH (08:35)
[2017-01-22] MEDS: CARVEDILOL 6.25 MG TABLET PO SCH (08:35)
[2017-01-22] MEDS: FENOFIBRATE 145 MG TABLET PO SCH (08:36)
[2017-01-22] MEDS: PANTOPRAZOLE 40 MG TABLET PO SCH (08:36)
[2017-01-22] MEDS: tiZANidine 4 MG TABLET PO SCH (08:36)
[2017-01-22] MEDS: LISINOPRIL 20 MG TABLET PO SCH (08:36)
[2017-01-22] MEDS: ATORVASTATIN 80 MG TABLET PO SCH (08:36)
[2017-01-22] MEDS: HYDROmorphone 2 MG/1 ML VIAL IV PRN (10:43)
[2017-01-22 11:30] VITALS: BP 153/72
--- NOTE | 2017-01-22 11:48 | Discharge Summary ---
Hospital Course - Hospital Course Hospital Course: Patient is a 71-year-old male who underwent robotic sigmoid colectomy with stapled EEA anastomosis for chronic recurrent sigmoid diverticulitis. Postoperatively, the patient had JEANETTE drain with apparently decreased output over time. In the postoperative phase, he demonstrated acute kidney injury was responded to IV hydration as well as hypokalemia which responded to repletion without complication. He slowly progress his diet as tolerated and advance his activity levels. The time of discharge he was voiding without difficulty and had a bowel movement. Cardiology consultation was obtained considering patient' s past medical history appreciated. No events noted. Ultimately he was discharged home in good condition. Diagnosis - Discharge Diagnosis (1) Status post colectomy Status: Acute (2) Diverticulitis Status: Chronic (3) Dyslipidemia Status: Chronic (4) GERD (gastroesophageal reflux disease) Status: Chronic (5) History of coronary artery disease Status: Chronic (6) Hypertension Status: Chronic Specialty Discharge - Follow Up or Referrals Follow up with: Renaldo Rahman III., MD [Physician] - 01/30/17 2:45 pm Digna Rios MD [Physician] - 03/01/17 9:40 am (6 weeks) Discharge Plan - Discharge Data Disposition: Disch To Home/Self Care Condition at Discharge: Stable Activity: no lifting (> 10 lb) Hygiene: may shower (Do not soak or submerge wound. Pat wound dry. ) Driving: not until seen by doctor Contact your physician if you experience:: fever over 101, Difficulty voiding, Redness or swelling, Nausea/Vomiting, Shortness of breath, Bleeding, pain uncontrolled by pain medications Wound / Dressing Care Instructions: Keep surgical incisions cleand, dry and covered. - Discharge Medications New oxyCODONE/ACETAMINOPHEN 5-325 [Percocet 5-325] 1 - 2 tablet PO Q4H PRN #40 tablet PRN Reason: Pain Moderate To Severe (4-10) Continue Fenofibrate [Tricor] 145 mg PO DAILY Atorvastatin [Lipitor] 80 mg PO DAILY Trazodone HCl 300 mg PO BEDTIME Donepezil [Aricept] 10 mg PO DAILY Multivitamin [One Daily Multivitamin] 1 tablet PO DAILY Tizanidine HCl 4 mg PO QID Lisinopril 20 mg PO DAILY Omeprazole 20 mg PO DAILY Acetamin/Codeine 300-30 Tab [Tylenol/Codeine #3] 1 tablet PO QID Tamsulosin [Flomax] 0.4 mg PO DAILY Vortioxetine Hydrobromide [Brintellix] 1 tablet PO DAILY Carvedilol 6.25 mg PO BID - Follow Up or Referral Follow Up: Renaldo Rahman III., MD [Physician] - 01/30/17 2:45 pm Digna Rios MD [Physician] - 03/01/17 9:40 am (6 weeks) - Forms/Instructions Instructions: Oxycodone/Acetaminophen (By mouth), Low Fiber Diet (GEN), Colectomy (DC) Exam - Constitutional Vitals: Period Temp Pulse Resp BP Sys/Squires Pulse Ox Last 24 Hr 97.5 F-99.2 F 55-89 16-20 109-153/60-85 94-96 General appearance: no acute distress - Eye Eye exam: Absent: conjunctival injection, scleral icterus - Respiratory Respiratory exam: Present: clear to auscultation bilaterally - Cardiovascular Cardiovascular exam: Present: regular rate and rhythm - GI/Abdominal GI/Abdominal exam: Present: normal bowel sounds, tenderness (Appropriate postoperative; surgical incisions clean, dry and intact), soft - Extremities Exam Extremities exam: Absent: calf tenderness, edema - Neurological Exam Neurological exam: Present: alert, oriented X3 - Psychiatric Psychiatric exam: Present: normal affect, normal mood - Skin Skin exam: Present: normal color, warm Discharge Results Procedures and tests throughout hospitalization: #1 robotic sigmoid colectomy with stapled EEA anastomosis 2. Complete mobilization of splenic flexure 3.: Pathology: Diverticular listhesis/-itis; no malignancy identified DS: Provider Date of admission: 01/18/17 10:34 Primary care physician: Eusebio Bain MD Attending physician on admission: Renaldo Rahman III., Consults: 01/18/17 10:34 Consult to Physician [CONS] Routine Comment: History of congestive heart failure and coronary a Consulting Provider: Consulting Provider Notified: Yes When should Consulting Provider be notified: Now Consult to Specialist Group: Cardiology When should Consulting Provider be notified: Now Person Notified: Gamaliel ricardo Date Notified: 01/18/17 Time Notified: 12:02 01/18/17 14:25 Consult to Dietitian [CONS] Routine Reason for Dietitian: Dietary Consult Discharging clinician: Jenni Dias PA-C
== END 2017-01-22 12:30 | disposition home or self-care (01) | DRG 330 ==
LOC: N.OR 05:52 → N.SDSINP 05:53 → N.3E 11:52
PROVIDERS: ADMIT Surgery; ATTEND Surgery